=== PATIENT | male | born 1970 | race Caucasian/White ===

== ENCOUNTER 2020-01-20 10:02 | Outpatient (CLI) | payer OTHER | END 2020-01-20 10:03 | disposition home or self-care (01) | LOC: NUCLEAR 10:02 | DX: C73 Malignant neoplasm of thyroid gland (principal); E89.0 Postprocedural hypothyroidism | CPT/HCPCS: 79005; A9517 ==

== ENCOUNTER 2020-01-20 10:39 | Outpatient (CLI) | payer OTHER | END 2020-01-20 10:43 | disposition home or self-care (01) | LOC: LAB 10:39 | DX: C73 Malignant neoplasm of thyroid gland (principal); E89.0 Postprocedural hypothyroidism ==

== ENCOUNTER 2020-01-27 10:34 | Outpatient (CLI) | payer OTHER | END 2020-01-27 10:49 | disposition home or self-care (01) | LOC: NUCLEAR 10:34 | DX: C73 Malignant neoplasm of thyroid gland (principal); E89.0 Postprocedural hypothyroidism ==

== ENCOUNTER → 2021-04-03 | Outpatient (CLI) | payer OTHER | END | disposition home or self-care (01) | LOC: SONOGRAMA 15:03 | DX: M77.11 Lateral epicondylitis, right elbow (principal) ==